=== PATIENT | female | born 1995 | race Caucasian/White ===

== ENCOUNTER 2017-06-05 09:51 | Outpatient (CLI) | payer MEDICAID ==
[2017-06-05 10:53] LABS: ADD MAN DIFF? NO
[2017-06-05 10:55] LABS: BASOPHILS % 0.2 % (0.0-2.0); EOSINOPHILS % 0.2 % (0.0-7.0); HEMATOCRIT 31.3 % (37.0-47.0); HEMOGLOBIN 10.9 g/dl (12.0-16.0); LYMPHOCYTES # 1.6 10^3/ul (0.8-2.9); LYMPHOCYTES % 20.2 % (15.0-51.0); MEAN CORPUSCULAR HEMOGLOBIN 31.7 pg (29.0-33.0); MEAN CORPUSCULAR HGB CONC 34.8 g/dl (32.0-37.0); MEAN PLATELET VOLUME 9.8 fl (7.4-10.4); MONOCYTE # 0.4 10^3/ul (0.3-0.9); MONOCYTES % 4.7 % (0.0-11.0); NEUTROPHIL # 5.9 10^3/ul (1.6-7.5); NEUTROPHILS % 73.6 % (39.0-77.0); PLATELET COUNT 249 10^3/UL (140-415); RED BLOOD COUNT 3.44 10^6/ul (4.20-5.40); RED CELL DISTRIBUTION WIDTH 13.1 % (11.5-14.5)
[2017-06-05 10:55] LABS: WHITE BLOOD COUNT 8.1 10^3/ul (4.8-10.8)
[2017-06-05 11:04] LABS: ADD UMIC YES; UR ASCORBIC ACID NEGATIVE (NEGATIVE); UR BILIRUBIN (Dip) NEGATIVE (NEGATIVE); UR BLOOD (Dip) 1+ mg/dL (NEGATIVE); UR CLARITY CLEAR (CLEAR); UR COLOR YELLOW (YELLOW); UR GLUCOSE (Dip) NEGATIVE (NEGATIVE); UR KETONES (Dip) NEGATIVE (NEGATIVE); UR LEUKOCYTE ESTERASE (Dip) TRACE Leu/ul (NEGATIVE); UR MUCUS MANY /HPF (NONE SEEN); UR NITRITE (Dip) NEGATIVE (NEGATIVE); UR RBC 1 /HPF (0-5); UR SPECIFIC GRAVITY (Dip) 1.029 (1.003-1.030); UR SQUAMOUS EPITHELIAL CELL FEW /HPF (FEW); UR TOTAL PROTEIN (Dip) 1+ mg/dl (NEGATIVE); UR UROBILINOGEN (Dip) NEGATIVE (NEGATIVE); UR WBC 1 /HPF (0-5)
[2017-06-05 11:25] LABS: COCAINE Negative (NEGATIVE)
[2017-06-05 11:28] LABS: AMPHETAMINE/METHAMPHETAMINE Negative (NEGATIVE); BARBITURATES Negative (NEGATIVE); BENZODIAZEPINES Negative (NEGATIVE); CANNABINOIDS Negative (NEGATIVE)
[2017-06-05 11:29] LABS: OPIATES Negative (NEGATIVE)
[2017-06-05] MEDS: BETAMET NA PHOS/AC(6 MG/ML) 5ML INJ IM (15:06)
[2017-06-05] MEDS: LACTATED RINGER'S 1,000 ML IV (15:06)
[2017-06-05] MEDS: TERBUTALINE 1 MG/ML INJ SC (15:07)
== END 2017-06-05 18:40 | disposition home or self-care (01) ==
LOC: OBT 09:51 → L-D 09:52 → OBT 18:40
DX: O62.9 Abnormality of forces of labor, unspecified (principal); Z3A.29 29 weeks gestation of pregnancy
CPT/HCPCS: 36415; 76817; 76818; 80307; 81001; 85025; 87086; 96360; 96361

== ENCOUNTER 2017-06-06 14:35 | Outpatient (CLI) | payer MEDICAID ==
[2017-06-06] MEDS: BETAMET NA PHOS/AC(6 MG/ML) 5ML INJ IM (16:16)
== END 2017-06-06 17:10 | disposition home or self-care (01) ==
LOC: OBT 14:35 → L-D 14:36 → OBT 17:10
DX: O62.9 Abnormality of forces of labor, unspecified (principal); Z3A.29 29 weeks gestation of pregnancy
CPT/HCPCS: J0702

== ENCOUNTER 2017-07-23 14:37 | Outpatient (CLI) | payer MEDICAID | END 2017-07-23 15:45 | disposition home or self-care (01) | LOC: OBT 14:37 → L-D 14:41 → OBT 15:45 | DX: O36.8130 Decreased fetal movements, third trimester, not applicable or unspecified (principal); Z3A.36 36 weeks gestation of pregnancy | CPT/HCPCS: 76818 ==

== ENCOUNTER 2017-07-28 15:28 | Outpatient (CLI) | payer MEDICAID ==
[2017-07-28 18:14] LABS: ADD UMIC YES; UR ASCORBIC ACID NEGATIVE (NEGATIVE); UR BACTERIA FEW /HPF (NONE SEEN); UR BILIRUBIN (Dip) NEGATIVE (NEGATIVE); UR BLOOD (Dip) NEGATIVE (NEGATIVE); UR CLARITY CLOUDY (CLEAR); UR COLOR YELLOW (YELLOW); UR GLUCOSE (Dip) NEGATIVE (NEGATIVE); UR KETONES (Dip) NEGATIVE (NEGATIVE); UR LEUKOCYTE ESTERASE (Dip) TRACE Leu/ul (NEGATIVE); UR MUCUS MODERATE /HPF (NONE SEEN); UR NITRITE (Dip) NEGATIVE (NEGATIVE); UR RBC 1 /HPF (0-5); UR SPECIFIC GRAVITY (Dip) 1.026 (1.003-1.030); UR SQUAMOUS EPITHELIAL CELL MANY /HPF (FEW); UR TOTAL PROTEIN (Dip) 1+ mg/dl (NEGATIVE); UR UROBILINOGEN (Dip) NEGATIVE (NEGATIVE); UR WBC 2 /HPF (0-5)
[2017-07-28 20:45] LABS: COCAINE Positive (NEGATIVE)
[2017-07-28 21:02] LABS: AMPHETAMINE/METHAMPHETAMINE Negative (NEGATIVE); BARBITURATES Negative (NEGATIVE); BENZODIAZEPINES Negative (NEGATIVE); CANNABINOIDS Negative (NEGATIVE); OPIATES Negative (NEGATIVE)
== END 2017-07-28 20:47 | disposition home or self-care (01) ==
LOC: OBT 15:28 → L-D 15:28 → OBT 20:47
DX: O62.9 Abnormality of forces of labor, unspecified (principal); Z3A.37 37 weeks gestation of pregnancy
CPT/HCPCS: 76818; 80307; 81001

== ENCOUNTER 2017-07-31 15:57 | Outpatient (CLI) | payer MEDICAID ==
[2017-07-31 16:53] LABS: ADD UMIC NO; UR ASCORBIC ACID NEGATIVE (NEGATIVE); UR BILIRUBIN (Dip) NEGATIVE (NEGATIVE); UR BLOOD (Dip) NEGATIVE (NEGATIVE); UR CLARITY SLIGHTLY CLOUDY (CLEAR); UR COLOR YELLOW (YELLOW); UR GLUCOSE (Dip) NEGATIVE (NEGATIVE); UR KETONES (Dip) NEGATIVE (NEGATIVE); UR LEUKOCYTE ESTERASE (Dip) NEGATIVE Leu/ul (NEGATIVE); UR MUCUS MODERATE /HPF (NONE SEEN); UR NITRITE (Dip) NEGATIVE (NEGATIVE); UR RBC 0 /HPF (0-5); UR SPECIFIC GRAVITY (Dip) 1.028 (1.003-1.030); UR SQUAMOUS EPITHELIAL CELL FEW /HPF (FEW); UR TOTAL PROTEIN (Dip) NEGATIVE (NEGATIVE); UR UROBILINOGEN (Dip) NEGATIVE (NEGATIVE); UR WBC 2 /HPF (0-5)
[2017-08-01 01:36] LABS: AMPHETAMINE/METHAMPHETAMINE Negative (NEGATIVE); COCAINE Positive (NEGATIVE)
[2017-08-01 01:37] LABS: BARBITURATES Negative (NEGATIVE); BENZODIAZEPINES Negative (NEGATIVE); CANNABINOIDS Negative (NEGATIVE)
[2017-08-01 01:38] LABS: OPIATES Negative (NEGATIVE)
== END 2017-07-31 17:50 | disposition home or self-care (01) ==
LOC: OBT 15:57 → L-D 15:58 → OBT 17:50
DX: O36.8130 Decreased fetal movements, third trimester, not applicable or unspecified (principal); Z3A.37 37 weeks gestation of pregnancy
CPT/HCPCS: 76818; 80307; 81001; 81003; 87086

== ENCOUNTER 2017-08-07 15:47 | Outpatient (CLI) | payer MEDICAID ==
[2017-08-07 17:46] LABS: RUPTURE FETAL MEMBRANES NEGATIVE (NEGATIVE)
== END 2017-08-07 18:25 | disposition home or self-care (01) ==
LOC: OBT 15:47 → L-D 15:48 → OBT 18:25
DX: O42.92 Full-term premature rupture of membranes, unspecified as to length of time between rupture and onset of labor (principal); Z3A.38 38 weeks gestation of pregnancy
CPT/HCPCS: 76818; 84112

== ENCOUNTER 2017-08-12 15:23 | Outpatient (CLI) | payer MEDICAID ==
[2017-08-12 16:28] LABS: RUPTURE FETAL MEMBRANES NEGATIVE (NEGATIVE)
[2017-08-12 17:23] LABS: COCAINE Negative (NEGATIVE)
[2017-08-12 17:24] LABS: AMPHETAMINE/METHAMPHETAMINE Negative (NEGATIVE); BARBITURATES Negative (NEGATIVE); BENZODIAZEPINES Negative (NEGATIVE); CANNABINOIDS Negative (NEGATIVE); OPIATES Negative (NEGATIVE)
== END 2017-08-12 17:30 | disposition home or self-care (01) ==
LOC: OBT 15:23 → L-D 15:23 → OBT 17:30
DX: O42.913 Preterm premature rupture of membranes, unspecified as to length of time between rupture and onset of labor, third trimester (principal); Z3A.39 39 weeks gestation of pregnancy
CPT/HCPCS: 76818; 80307; 84112

== ENCOUNTER 2017-08-15 07:21 | Inpatient (IN) | payer MEDICAID ==
[2017-08-15] MEDS ORDERED: LACTATED RINGER'S 1,000 ML IV (07:47)
[2017-08-15] MEDS ORDERED: MINERAL OIL LIGHT 10 ML VIAL TOP (08:00)
[2017-08-15] MEDS ORDERED: AMPICILLIN 2 GM/NS (PMX) 100 ML IV (08:00)
[2017-08-15] MEDS ORDERED: OXYTOCIN 30 UNITS/LR 500 ML IV ×2 (08:00→12:00)
[2017-08-15] MEDS ORDERED: MISOPROSTOL 200 MCG TAB PR ×2 (08:00→12:00)
[2017-08-15] MEDS ORDERED: LIDOCAINE 1% (MPF) 30 ML INJ INJ (08:00)
[2017-08-15] MEDS ORDERED: METHYLERGONOVINE 0.2 MG INJ IM ×2 (08:00→12:00)
[2017-08-15] MEDS ORDERED: CARBOPROST 250 MCG INJ IM ×2 (08:00→12:00)
[2017-08-15] MEDS: BUTORPHANOL 2 MG INJ IV (08:06)
[2017-08-15 08:17] LABS: ADD MAN DIFF? NO
[2017-08-15 08:20] LABS: BASOPHIL # 0.1 10^3/ul (0.0-0.1); BASOPHILS % 0.4 % (0.0-2.0); EOSINOPHILS # 0.1 10^3/ul (0.0-0.5); EOSINOPHILS % 0.4 % (0.0-7.0); HEMATOCRIT 37.2 % (37.0-47.0); HEMOGLOBIN 12.9 g/dl (12.0-16.0); LYMPHOCYTES # 2.4 10^3/ul (0.8-2.9); LYMPHOCYTES % 17.6 % (15.0-51.0); MEAN CORPUSCULAR HEMOGLOBIN 31.9 pg (29.0-33.0); MEAN CORPUSCULAR HGB CONC 34.7 g/dl (32.0-37.0); MEAN CORPUSCULAR VOLUME 91.9 fl (82.0-101.0); MEAN PLATELET VOLUME 10.8 fl (7.4-10.4); MONOCYTE # 0.6 10^3/ul (0.3-0.9); MONOCYTES % 4.8 % (0.0-11.0); NEUTROPHIL # 10.3 10^3/ul (1.6-7.5); NEUTROPHILS % 76.1 % (39.0-77.0); PLATELET COUNT 253 10^3/UL (140-415); RED BLOOD COUNT 4.05 10^6/ul (4.20-5.40); RED CELL DISTRIBUTION WIDTH 13.4 % (11.5-14.5)
[2017-08-15 08:20] LABS: WHITE BLOOD COUNT 13.5 10^3/ul (4.8-10.8)
[2017-08-15 08:38] LABS: INR 0.92; PROTIME 12.4 Sec (11.9-14.9)
[2017-08-15 08:39] LABS: PARTIAL THROMBOPLASTIN TIME 25.4 Sec (25.0-35.0)
[2017-08-15] MEDS: IBUPROFEN 600 MG TAB PO ×4 (10:16→23:33)
[2017-08-15] MEDS: MINERAL OIL LIGHT 10 ML VIAL TOP (10:16)
[2017-08-15] MEDS: OXYTOCIN 30 UNITS/LR 500 ML IV ×2 (10:19→10:48)
[2017-08-15] MEDS ORDERED: AMPICILLIN 1 GM/NS (PMX) 50 ML IV (12:00)
[2017-08-15] MEDS ORDERED: DIBUCAINE 1% 30 GM OINT PR (12:00)
[2017-08-15] MEDS ORDERED: HYDROCODONE/APAP (5/325) TAB PO ×2 (12:00)
[2017-08-15] MEDS ORDERED: ZOLPIDEM 5 MG TAB PO (12:00)
[2017-08-15 12:57] LABS: HEPATITIS B SURFACE ANTIGEN NEGATIVE (NEGATIVE)
[2017-08-15] MEDS: CEPHALEXIN 500 MG CAP PO ×3 (14:07→23:33)
[2017-08-15] MEDS: LACTATED RINGER'S 1,000 ML IV* (14:30)
[2017-08-15] MEDS: WITCH HAZEL/GLYCERIN PAD PR (16:23)
[2017-08-15] MEDS: BENZOCAINE 20% 56 ML SPRAY TOP (16:24)
[2017-08-15] MEDS: LANOLIN 7 GM TUBE TOP (16:24)
[2017-08-15] MEDS: MAGNESIUM HYDROXIDE 30ML CUP PO (21:00)
[2017-08-15 22:36] LABS: RAPID PLASMA REAGIN NONREACTIVE (NR)
[2017-08-15] MEDS: SENNA/DOCUSATE NA (8.6MG/50MG) TAB PO (23:33)
[2017-08-16] MEDS: LACTATED RINGER'S 1,000 ML IV* (00:53)
[2017-08-16] MEDS: IBUPROFEN 600 MG TAB PO ×4 (05:45→23:38)
[2017-08-16] MEDS: CEPHALEXIN 500 MG CAP PO ×4 (05:45→23:38)
[2017-08-16 07:02] LABS: ADD MAN DIFF? NO
[2017-08-16 07:10] LABS: BASOPHIL # 0.1 10^3/ul (0.0-0.1); BASOPHILS % 0.4 % (0.0-2.0); EOSINOPHILS # 0.1 10^3/ul (0.0-0.5); EOSINOPHILS % 0.8 % (0.0-7.0); HEMOGLOBIN 10.9 g/dl (12.0-16.0); LYMPHOCYTES # 2.8 10^3/ul (0.8-2.9); MEAN CORPUSCULAR HEMOGLOBIN 31.2 pg (29.0-33.0); MEAN CORPUSCULAR VOLUME 94.6 fl (82.0-101.0); MEAN PLATELET VOLUME 11.1 fl (7.4-10.4); MONOCYTE # 0.7 10^3/ul (0.3-0.9); MONOCYTES % 6.2 % (0.0-11.0); NEUTROPHIL # 7.4 10^3/ul (1.6-7.5); NEUTROPHILS % 66.7 % (39.0-77.0); PLATELET COUNT 226 10^3/UL (140-415); RED BLOOD COUNT 3.49 10^6/ul (4.20-5.40); RED CELL DISTRIBUTION WIDTH 13.8 % (11.5-14.5)
[2017-08-16 07:10] LABS: WHITE BLOOD COUNT 11.2 10^3/ul (4.8-10.8)
[2017-08-16] MEDS: SENNA/DOCUSATE NA (8.6MG/50MG) TAB PO ×2 (10:18→21:00)
[2017-08-16] MEDS: MAGNESIUM HYDROXIDE 30ML CUP PO ×2 (10:18→21:00)
[2017-08-17] MEDS: IBUPROFEN 600 MG TAB PO ×2 (06:18→12:22)
[2017-08-17] MEDS: CEPHALEXIN 500 MG CAP PO ×2 (06:18→12:22)
[2017-08-17] MEDS: SENNA/DOCUSATE NA (8.6MG/50MG) TAB PO (08:54)
[2017-08-17] MEDS: MAGNESIUM HYDROXIDE 30ML CUP PO (09:00)
[2017-08-17] MEDS: VARICELLA VACCINE LIVE/PF 1,350 UNIT/0.5 ML ML SC* (09:00)
[2017-08-17] MEDS: MEASLES,MUMPS,RUBELLA VACCINE INJ SC* (09:00)
[2017-08-17] MEDS: DIPHTH/TET/ACEL PERTUSS (ADULT) 0.5 ML VIAL IM* (09:00)
== END 2017-08-17 14:50 | disposition home or self-care (01) | DRG 775 ==
LOC: OBT 07:21 → L-D 07:21 → OBT 07:39 → L-D 07:39 → PP1 14:22
PROVIDERS: Obstetrics & Gynecology
PROC: 10E0XZZ Delivery of Products of Conception, External Approach (ICD-10-PCS; principal; 2017-08-15)
DX: O80 Encounter for full-term uncomplicated delivery (principal); Z3A.39 39 weeks gestation of pregnancy; Z37.0 Single live birth
CPT/HCPCS: 85025; 85610; 85730; 86592; 86900; 86901; 87340; 99464